=== PATIENT | female | born 1970 | race Caucasian/White ===

== ENCOUNTER → 2017-05-23 | Outpatient (CLI) | payer OTHER ==
[~2017-05-23] MED LIST: AMBIEN 10MG10 MG PO; AMRIX30 MG PO; ATIVAN 0.50.5 MG/TAB PO; BENADRYL25 M2 PO; CARDIZEM 30MG T30 MG PO; CARTIA XT240 MG PO; CLARINEX-D 24 H1 T24 PO; COUMADIN 5MG5 MG/TAB PO; DYRENIUM 50MG C50 MG PO; EFFEXOR-XR150 MG PO; ESCITALOPRAM; HCTZ 25MG TAB25 MG PO; IMURAN 50MG TAB50 MG PO; LIPITOR 10MG10 MG PO; LOTEMAX 5 ML 5 M5 ML OU; LYRICA 50MG CAP50 MG PO; PATADAY 2.5 ML2.5 ML OU; PREDNISONE 5MG5 MG PO; PRILOSEC 20MG20 MG PO; RESTASIS 60VL OU; SINGULAIR 110 MG/TAB PO; VYVANSE; WELLBUTRIN SR150 M1 PO; XANAX 0.5MG0.5 MG PO; XANAX 1MG1 MG PO; XANAX XR1 M1 PO
== END ==
LOC: MC.RAD 09:17
DX: Z12.31 Encounter for screening mammogram for malignant neoplasm of breast (principal)